=== PATIENT | male | born 1985 | race Caucasian/White ===

== ENCOUNTER 2019-04-03 06:38 | Observation (INO) | payer OTHER ==
[2019-04-02 15:59] VITALS: BP 139/87
[2019-04-02 16:11] LABS: BASOPHILS # (AUTO) 0.04 x10^3/uL (0-0.1); BASOPHILS % (AUTO) 1 % (0-1); EOSINOPHILS # (AUTO) 0.09 x10^3/uL (0-0.4); EOSINOPHILS % (AUTO) 2 % (1-7); LYMPHOCYTES # (AUTO) 2.34 x10^3/uL (1-3.4); LYMPHOCYTES % (AUTO) 39 % (22-44); MD NO; MEAN CORPUSCULAR HEMOGLOBIN 33.4 pg (27.5-34.5); MEAN CORPUSCULAR HGB CONC 35.6 g/dL (33.2-36.2); MEAN CORPUSCULAR VOLUME 93.8 fL (81-97); MEAN PLATELET VOLUME 9.5 fL (7.4-10.4); MONOCYTES # (AUTO) 0.31 x10^3/uL (0.2-0.8); MONOCYTES % (AUTO) 5 % (2-9); NEUTROPHILS # (AUTO) 3.22 x10^3/uL (1.8-6.8); NEUTROPHILS % (AUTO) 54 % (42-75); PLATELET COUNT 197 x10^3/uL (130-400); RED BLOOD COUNT 4.51 x10^6/uL (4.38-5.82); RED CELL DISTRIBUTION WIDTH 12.1 % (9.4-14.8)
[2019-04-02 16:21] LABS: CHLORIDE 105 mmol/L (98-107)
[2019-04-02 16:48] LABS: ANION GAP 8 mmol/L (5-15); CALCIUM 9.1 mg/dL (8.5-10.1); CREATININE 1.13 mg/dL (0.7-1.3)
[~2019-04-03] VITALS: Ht 175.3 cm; Wt 64.7 kg
[~2019-04-03 06:38] MED LIST: FLUT9.9S NAS
[2019-04-03] MEDS ORDERED: SODIUM CHLORIDE 0.9% 1,000 ML IV SCH (06:49)
[2019-04-03] MEDS ORDERED: METO-93 PO (07:05)
[2019-04-03] MEDS ORDERED: FLUT9.9S INH (07:07)
[2019-04-03] MEDS ORDERED: FENTANYL PF 100 MCG/2ML ONE ×3 (07:49→10:38)
[2019-04-03] MEDS ORDERED: MIDAZOLAM 1 MG/ML, 5ML ONE ×3 (07:49→10:38)
[2019-04-03] MEDS ORDERED: ADENOSINE 6 MG/2 ML ONE ×2 (07:50→10:54)
[2019-04-03] MEDS ORDERED: ISOPROTERENOL 0.2MG/ML, 5ML ONE (07:50)
[2019-04-03] MEDS ORDERED: LIDOCAINE 2%, 20ML ONE (07:50)
[2019-04-03] MEDS ORDERED: HEPARIN 1,000 UNITS/ML, 10ML ONE (09:15)
[2019-04-03] MEDS ORDERED: ACETAMINOPHEN 325 MG TABLET PO PRN (13:00)
[2019-04-03 14:23] VITALS: BP 119/76
[2019-04-03] MEDS ORDERED: IBUPROFEN 200 MG TABLET PO PRN (17:00)
[2019-04-03] MEDS ORDERED: CALCIUM CARBONATE 500 MG TAB.CHEW PO PRN (17:00)
[2019-04-03 20:14] VITALS: BP 123/77
[2019-04-03] MEDS: FLUTICASONE NASAL SPRAY 16GM NAS SCH (20:46)
[2019-04-04 01:37] VITALS: BP 121/72
[2019-04-04] MEDS ORDERED: ASPIRIN 325 MG TABLET EC PO SCH (06:00)
[2019-04-04 06:37] VITALS: BP 132/75
[2019-04-04] MEDS: FLUTICASONE NASAL SPRAY 16GM NAS SCH (07:48)
[2019-04-04] MEDS ORDERED: ASPI-650 PO (08:26)
[2019-04-04] MEDS ORDERED: OMEPRAZOLE 20 MG CAPSULE.DR PO SCH (09:00)
== END 2019-04-04 11:15 | disposition home or self-care (01) ==
LOC: CACL 06:38 → ORIP 13:36 → 5SO 14:02 → DCLOUNGE 04-04 10:59
PROVIDERS: ADMIT Internal Medicine Cardiovascular Disease; ATTEND Internal Medicine Cardiovascular Disease
DX: I48.91 Unspecified atrial fibrillation (principal); I47.1 Supraventricular tachycardia; Z79.82 Long term (current) use of aspirin; Z79.899 Other long term (current) drug therapy
CPT/HCPCS: 36415; 71046; 80048; 85025; 85347; 93462; 93613; 93623; 93653; 93655; 93662; 99156; 99157; C1730; C1759; C1766; C1893; C1894; C2630; G0378; J0153; J1644; J2250; J3010; J3490

== ENCOUNTER 2019-08-09 09:35 | Emergency (ER) | payer OTHER ==
[~2019-08-09] VITALS: Ht 175.3 cm; Wt 64.0 kg
[~2019-08-09 09:35] MED LIST changes: +ASPI-650 PO; +FLUT9.9S INH; +METO-93 PO
[2019-08-09 09:42] VITALS: BP 131/89
[2019-08-09] MEDS ORDERED: KETOROLAC 60 MG/2 ML ONE (10:06)
[2019-08-09] MEDS ORDERED: KETOROLAC 30 MG/1 ML IM ONE (10:30)
--- NOTE | 2019-08-09 11:13 | NUR ---
PT REPORTS PAIN IS A "LITTLE BETTER" AFTER TORADOL SHOT.
== END 2019-08-09 11:08 | disposition home or self-care (01) ==
LOC: ED 10:54
DX: S39.012A Strain of muscle, fascia and tendon of lower back, initial encounter (principal); S33.5XXA Sprain of ligaments of lumbar spine, initial encounter; V89.2XXA Person injured in unspecified motor-vehicle accident, traffic, initial encounter; Y93.89 Activity, other specified; Y92.488 Other paved roadways as the place of occurrence of the external cause; Y99.8 Other external cause status
CPT/HCPCS: 72072; 72110; 96372; 99284; J1885

== ENCOUNTER → 2020-09-25 | Outpatient (CLI) | payer OTHER ==
[~2020-09-25] MED LIST changes: -ASPI-650 PO; +ASPI325T20 PO
== END | disposition home or self-care (01) ==
LOC: CFH 15:31
PROVIDERS: ATTEND Allergy & Immunology Allergy
DX: J34.2 Deviated nasal septum (principal); J34.89 Other specified disorders of nose and nasal sinuses; J32.4 Chronic pansinusitis; J33.0 Polyp of nasal cavity
CPT/HCPCS: 70486